=== PATIENT | male | born 1995 | race African-American/Black ===

== ENCOUNTER 2025-06-08 08:16 | Emergency (ER) | payer SELFPAY ==
[~2025-06-08] VITALS: Ht 175.3 cm; Wt 73.0 kg
[2025-06-08 08:25] VITALS: O2SAT 100
[2025-06-08] MEDS: IBUPROFEN 600MG TABLET PO ONE (09:18)
[2025-06-08 10:10] VITALS: BP 103/60; PULSE 63; RESP 16; TEMP 36.9; O2SAT 98
== END 2025-06-08 10:11 | disposition home or self-care (01) ==
LOC: ER 08:16
DX: M25.521 Pain in right elbow (principal)
CPT/HCPCS: 73080; 99283